=== PATIENT | male | born 1995 | race Caucasian/White ===

== ENCOUNTER 2021-05-11 09:12 | Emergency (ER) | payer MEDICAID ==
[~2021-05-11] VITALS: Ht 180.3 cm; Wt 111.4 kg
[2021-05-11] MEDS ORDERED: ketorolac trometh. 30mg/ml inj. IV ONE (09:45)
[2021-05-11] MEDS ORDERED: ondansetron/PF 4mg/2ml inj IV ONE (09:45)
[2021-05-11] MEDS ORDERED: normal saline 1000ml 1,000 ML IV ONE (09:45)
[2021-05-11 10:02] LABS: BASOPHILS % (AUTO) 0.2 % (0-1); EOSINOPHILS % (AUTO) 0.7 % (0-6); HEMATOCRIT 42.7 % (42.0-52.0); HEMOGLOBIN 14.6 g/dl (14.0-17.9); LYMPHOCYTES # (AUTO) 1.1 X10'3 (1.1-4.8); LYMPHOCYTES % (AUTO) 15.4 % (21-51); MEAN CORPUSCULAR HEMOGLOBIN 29.6 PG (27.0-31.0); MEAN CORPUSCULAR HGB CONC 34.1 g/dL (33.0-36.5); MEAN CORPUSCULAR VOLUME 86.9 FL (78-98); MEAN PLATELET VOLUME 6.4 FL (7.4-10.4); MONOCYTES # (AUTO) 1.1 X10'3 (0-0.9); MONOCYTES % (AUTO) 15.4 % (2-12); NEUTROPHILS # (AUTO) 4.7 X10'3 (1.8-7.7); NEUTROPHILS % (AUTO) 68.3 % (42-75); PLATELET COUNT 245 X10'3 (140-440); RED BLOOD COUNT 4.91 X10'6 (4.70-6.10); RED CELL DISTRIBUTION WIDTH 13.9 % (11.5-14.5); WHITE BLOOD COUNT 6.8 X10'3 (4.5-11.0)
[2021-05-11 10:25] LABS: CLARITY,URINE CLEAR (Clear); COLOR,URINE YELLOW (Yellow); GLUCOSE, URINE NEGATIVE (Neg); KETONES,URINE TRACE mg/dl (Neg); LEUKOCYTE ESTERASE ,URINE NEGATIVE (Neg); NITRITES, URINE NEGATIVE (Neg); OCCULT BLOOD,URINE NEGATIVE (Neg); PH,URINE 6.5 (4.8-8.0); PROTEIN,URINE NEGATIVE (Neg); UROBILINOGEN,URINE 0.2 E.U/dL (0.2-1.0)
[2021-05-11 10:26] LABS: UA COLLECTION TYPE CLN CATCH MIDSTREAM
[2021-05-11 10:28] LABS: ALANINE AMINOTRANSFERASE 25 U/L (12-78); ALBUMIN 4.4 G/DL (3.4-5.0); ALBUMIN/GLOBULIN RATIO 1.2 (1.1-1.5); ALKALINE PHOSPHATASE 51 IU/L (46-116); ANION GAP 8 (8-16); ASPARTATE AMINO TRANSFERASE 20 U/L (10-37); BILIRUBIN,TOTAL 0.3 MG/DL (0.1-1.0); BLOOD UREA NITROGEN 9 MG/DL (7-18); BUN/CREATININE RATIO 7.1 (5.4-32.0); CALCIUM 9.2 MG/DL (8.5-10.1); CHLORIDE 101 MMOL/L (99-107); CREATININE 1.27 MG/DL (0.60-1.10); GLUCOSE 96 MG/DL (70-104); POTASSIUM 3.6 MMOL/L (3.5-5.1); SODIUM 136 MMOL/L (135-145); TOTAL CARBON DIOXIDE 26.6 MMOL/L (24-32); TOTAL PROTEIN 8.1 G/DL (6.4-8.2); eGFR 69 ML/MIN
[2021-05-11 11:32] VITALS: BP 116/70
[2021-05-11] MEDS ORDERED: IBUP-1986 PO (12:16)
[2021-05-11] MEDS ORDERED: CYCL-394 PO (12:16)
--- NOTE | 2021-05-11 12:36 | NUR ---
Pt given and understands d/c instructions. Ambulatory with a steady gait. IV d/c'd, catheter was intact.
== END 2021-05-11 12:30 | disposition home or self-care (01) ==
LOC: ER 09:14
DX: U07.1 COVID-19 (principal); M54.89 Other dorsalgia; R50.9 Fever, unspecified; Z79.899 Other long term (current) drug therapy
CPT/HCPCS: 36415; 80053; 81003; 83605; 84145; 85025; 86140; 87040; 87491; 87502; 87503; 87591; 87635; 96361; 96374; 96375; 99284; C9803; J1885; J2405; J7030

== ENCOUNTER 2021-08-02 19:51 | Emergency (ER) | payer MEDICAID ==
[~2021-08-02] VITALS: Ht 180.3 cm; Wt 109.0 kg
[~2021-08-02 19:51] MED LIST: IBUP-1986 PO
[2021-08-02 20:23] VITALS: BP 142/76
--- NOTE | 2021-08-02 20:46 | NUR ---
PATIENT STATES THAT HE WAS PLAYING BASKETBALL AROUND 700 PM WHEN HE WENT DOWN ON HIS ANKLE .DENIES PMH, STATES THAT THE PAIN IS 5/10 STATES THAT HE DOES HAVE SOME NUMBNESS AND TINGLING IN THAT EXTREMITIY
[2021-08-02] MEDS ORDERED: ibuprofen tablet 400 MG TABLET PO ONE (21:50)
== END 2021-08-02 22:44 | disposition home or self-care (01) ==
LOC: ER 19:51
DX: S82.875A Nondisplaced pilon fracture of left tibia, initial encounter for closed fracture (principal); F17.200 Nicotine dependence, unspecified, uncomplicated; W22.8XXA Striking against or struck by other objects, initial encounter; Y93.67 Activity, basketball; Y92.89 Other specified places as the place of occurrence of the external cause; Y99.8 Other external cause status
CPT/HCPCS: 29125; 73610; 99283

== ENCOUNTER 2021-09-15 12:18 | Emergency (ER) | payer MEDICAID ==
[~2021-09-15] VITALS: Ht 180.3 cm; Wt 103.6 kg
[2021-09-15 12:29] VITALS: BP 135/82
--- NOTE | 2021-09-15 14:55 | NUR ---
THROAT CULTURE SENT TO LAB
== END 2021-09-15 14:56 | disposition home or self-care (01) ==
LOC: ER 12:18
DX: J02.9 Acute pharyngitis, unspecified (principal); J06.9 Acute upper respiratory infection, unspecified
CPT/HCPCS: 87077; 87081; 87186; 87880; 99283